=== PATIENT | male | born 1970 | race Caucasian/White ===

== ENCOUNTER 2020-05-20 10:47 | Emergency (ER) | payer OTHER ==
[~2020-05-20 10:47] MED LIST: ASPIRIN EC81 MG PO; AUGMENTIN 875-1 EACH PO; BASAGLAR K100 UNIT/1 SC; BENTYL10 MG PO; CITRATE OF MAG296 ML PO; COLACE100 MG PO; CYANOCOBAL1000 MCG/1 SC; FENOFIBRATE145 MG PO; JANUVIA50 MG PO; LASIX20 MG PO; LEVAQUIN500 MG PO; LEVSIN0.125 MG PO; METFORMIN HCL500 MG PO; MIRALAX 238GM238 GM PO; MOBIC7.5 MG PO; NITROGLYCERIN0.4 MG SL; NORCO 5-325 TA1 EACH PO; PANTOPRAZOLE SO40 MG PO; PREDNISONE 20MG20 MG PO; PRINIVIL20 MG PO; TOPROL XL 25MG25 MG PO; TRULICITY1.5 MG/0.5 SC; VICODIN 10/3251 EACH PO; VITAMIN C250 M1 PO; ZOFRAN4 MG PO; ZPAK PO
[2020-05-20] MEDS ORDERED: NAPROXEN500 MG PO (12:13)
[2020-09-09] MEDS ORDERED: COLACE100 MG PO (08:20)
[2020-09-09] MEDS ORDERED: ULTRAM50 MG PO (08:20)
== END 2020-05-20 12:37 | disposition home or self-care (01) ==
LOC: FER 10:47
DX: M77.12 Lateral epicondylitis, left elbow (principal); I10 Essential (primary) hypertension; E11.9 Type 2 diabetes mellitus without complications
CPT/HCPCS: 73090

== ENCOUNTER 2020-08-07 11:58 | Emergency (ER) | payer OTHER ==
[~2020-08-07 11:58] MED LIST changes: +NAPROXEN500 MG PO
[2020-08-07 13:03] LABS: BASOPHIL 0.5 % (0-2); EOSINOPHIL 2.2 % (0-5); HCT 46.1 % (42.0-52.0); HGB 15.7 g/dl (13.2-18.0); LYMPHOCYTE 43.5 % (15-48); MCH 29.8 pg (25.0-31.0); MCHC 34.1 g/dL (32.0-36.0); MCV 87.6 fL (78.0-100.0); MONOCYTE 4.2 % (0-12); MPV 10.9 fL (6.0-9.5); NRBC 0; PLT 249 K/uL (150-400); RBC 5.26 M/uL (4.70-6.00); RDW 13.2 % (11.5-14.0); WBC 9.5 K/uL (4.0-10.5)
[2020-08-07 13:07] LABS: ALBUMIN 3.7 g/dL (3.4-5.0); BILIRUBIN - TOTAL 0.3 mg/dL (0.2-1.0); BUN/CREAT RATIO (CALC) 27.3 RATIO; CREATININE 0.88 mg/dL (0.67-1.17); GLOBULIN (CALCULATION) 4.1 g/dL; POTASSIUM 4.4 mmol/L (3.5-5.1); TOTAL PROTEIN 7.8 g/dL (6.4-8.2)
[2020-08-07 13:38] LABS: BILIRUBIN NEGATIVE (NEGATIVE); BLOOD NEGATIVE Ery/uL (NEGATIVE); CLARITY CLEAR (CLEAR); COLOR YELLOW (YELLOW); GLUCOSE (U) NORMAL (NORMAL); LEUKOCYTES NEGATIVE Leu/uL (NEGATIVE); NITRITE NEGATIVE (NEGATIVE); PROTEIN NEGATIVE (NEGATIVE); UROBILINOGEN 0.2 mg/dL (0.2-1.0); pH 6.5 (5.0-9.0)
[2020-08-07] MEDS ORDERED: RECTIV30 GM PR (14:54)
[2020-09-09] MEDS ORDERED: COLACE100 MG PO (08:20)
[2020-09-09] MEDS ORDERED: ULTRAM50 MG PO (08:20)
== END 2020-08-07 15:03 | disposition home or self-care (01) ==
LOC: FER 11:58
PROVIDERS: Nurse Practitioner Family
DX: K59.00 Constipation, unspecified (principal); E11.9 Type 2 diabetes mellitus without complications; Z90.49 Acquired absence of other specified parts of digestive tract
CPT/HCPCS: 36415; 80053; 81003; 85025; J1885; J2270; J7030; Q9967

== ENCOUNTER 2020-08-26 01:03 | Emergency (ER) | payer OTHER ==
[~2020-08-26 01:03] MED LIST changes: +RECTIV30 GM PR
[2020-08-26 02:32] LABS: ALBUMIN 3.6 g/dL (3.4-5.0); BILIRUBIN - TOTAL 0.2 mg/dL (0.2-1.0); C-REACTIVE PROTEIN 1.4 mg/dL (<=0.90); GLOBULIN (CALCULATION) 4.1 g/dL; MAGNESIUM 1.9 mg/dL (1.8-2.4); POTASSIUM 4.4 mmol/L (3.5-5.1); TOTAL PROTEIN 7.7 g/dL (6.4-8.2)
[2020-08-26 02:38] LABS: BASOPHIL 0.5 % (0-2); EOSINOPHIL 2.5 % (0-5); HCT 45.1 % (42.0-52.0); HGB 15.1 g/dl (13.2-18.0); LYMPHOCYTE 38.9 % (15-48); MCH 29.9 pg (25.0-31.0); MCHC 33.5 g/dL (32.0-36.0); MCV 89.3 fL (78.0-100.0); MONOCYTE 6.5 % (0-12); MPV 10.9 fL (6.0-9.5); NEUTROPHIL 49.8 % (41-80); NRBC 0; PLT 235 K/uL (150-400); RBC 5.05 M/uL (4.70-6.00); RDW 13.5 % (11.5-14.0); WBC 9.7 K/uL (4.0-10.5)
[2020-08-26 02:40] LABS: LACTIC ACID 1.5 mmol/L (0.4-1.9)
[2020-08-26 05:38] LABS: BILIRUBIN NEGATIVE (NEGATIVE); BLOOD NEGATIVE Ery/uL (NEGATIVE); CLARITY CLEAR (CLEAR); COLOR YELLOW (YELLOW); GLUCOSE (U) NORMAL (NORMAL); LEUKOCYTES NEGATIVE Leu/uL (NEGATIVE); NITRITE NEGATIVE (NEGATIVE); PROTEIN NEGATIVE (NEGATIVE); SPECIFIC GRAVITY >=1.030 (1.001-1.030); UROBILINOGEN 0.2 mg/dL (0.2-1.0)
[2020-08-26] MEDS ORDERED: MOBIC7.5 MG PO (06:15)
[2020-08-26] MEDS ORDERED: ROBAXIN750 MG PO (06:15)
[2020-09-09] MEDS ORDERED: ULTRAM50 MG PO (08:20)
[2020-09-09] MEDS ORDERED: COLACE100 MG PO (08:20)
== END 2020-08-26 06:36 | disposition home or self-care (01) ==
LOC: FER 01:03
PROVIDERS: Emergency Medicine Emergency Medical Services
DX: M54.12 Radiculopathy, cervical region (principal); M54.16 Radiculopathy, lumbar region; U07.1 COVID-19; M25.552 Pain in left hip; E11.9 Type 2 diabetes mellitus without complications; Z79.84 Long term (current) use of oral hypoglycemic drugs; Z79.899 Other long term (current) drug therapy
CPT/HCPCS: 36415; 70450; 72125; 72128; 72131; 72192; 80053; 81003; 83605; 83735; 85025; 86140; J1100; J1170; J1885; U0002

== ENCOUNTER → 2020-09-09 | Day surgery (SDC) | payer OTHER ==
[~2020-09-09] VITALS: Ht 185.4 cm; Wt 141.5 kg
[~2020-09-09] MED LIST changes: +PERCOCET 5-3251 EACH PO; +ROBAXIN750 MG PO; +ULTRAM50 MG PO
== END | disposition home or self-care (01) ==
LOC: FAS 09-01 07:30
DX: K60.2 Anal fissure, unspecified (principal); K64.9 Unspecified hemorrhoids; F32.9 Major depressive disorder, single episode, unspecified; E11.9 Type 2 diabetes mellitus without complications; E78.5 Hyperlipidemia, unspecified; I10 Essential (primary) hypertension; G47.30 Sleep apnea, unspecified; Z87.891 Personal history of nicotine dependence; K59.00 Constipation, unspecified; R68.89 Other general symptoms and signs
CPT/HCPCS: J0585; J0585-JG; J2250; J2405; J2704; J3010; J7120

== ENCOUNTER 2020-09-14 05:35 | Inpatient (IN) | payer OTHER ==
[~2020-09-14] VITALS: Ht 185.4 cm; Wt 141.6 kg
[~2020-09-14 05:35] MED LIST changes: -PERCOCET 5-3251 EACH PO
[2020-09-14 07:22] LABS: BASOPHIL 0.5 % (0-2); EOSINOPHIL 1.2 % (0-5); HCT 43.5 % (42.0-52.0); HGB 14.5 g/dl (13.2-18.0); MCH 29.2 pg (25.0-31.0); MCHC 33.3 g/dL (32.0-36.0); MCV 87.7 fL (78.0-100.0); MONOCYTE 7.1 % (0-12); MPV 10.3 fL (6.0-9.5); NEUTROPHIL 60.9 % (41-80); NRBC 0; PLT 300 K/uL (150-400); RBC 4.96 M/uL (4.70-6.00); RDW 12.9 % (11.5-14.0); WBC 14.4 K/uL (4.0-10.5)
[2020-09-14 07:24] LABS: ALBUMIN 3.3 g/dL (3.4-5.0); BILIRUBIN - TOTAL 0.4 mg/dL (0.2-1.0); BUN/CREAT RATIO (CALC) 17.3 RATIO; CREATININE 1.5 mg/dL (0.67-1.17); GLOBULIN (CALCULATION) 4.5 g/dL; POTASSIUM 4.3 mmol/L (3.5-5.1); TOTAL PROTEIN 7.8 g/dL (6.4-8.2)
[2020-09-14 07:45] LABS: LACTIC ACID 1.5 mmol/L (0.4-1.9)
[2020-09-14 08:20] LABS: BILIRUBIN NEGATIVE (NEGATIVE); BLOOD NEGATIVE Ery/uL (NEGATIVE); CLARITY CLEAR (CLEAR); COLOR YELLOW (YELLOW); GLUCOSE (U) NORMAL (NORMAL); LEUKOCYTES NEGATIVE Leu/uL (NEGATIVE); NITRITE NEGATIVE (NEGATIVE); PROTEIN NEGATIVE (NEGATIVE); SPECIFIC GRAVITY 1.025 (1.001-1.030); UROBILINOGEN 0.2 mg/dL (0.2-1.0)
[2020-09-14] MEDS ORDERED: COLACE100 MG PO (15:50)
[2020-09-14] MEDS ORDERED: PERCOCET 5-3251 EACH PO ×2 (15:50→17:08)
[2020-09-14] MEDS ORDERED: AUGMENTIN 875-1 EACH PO (15:50)
== END 2020-09-14 17:11 | disposition home or self-care (01) | DRG 856 ==
LOC: FER 05:35 → FMS 08:40
PROVIDERS: Emergency Medicine; Surgery; ADMIT Internal Medicine
PROC: 0D9P0ZZ Drainage of Rectum, Open Approach (ICD-10-PCS; principal; 2020-09-14 12:00)
DX: T81.44XA Sepsis following a procedure, initial encounter (principal); A41.9 Sepsis, unspecified organism; K61.1 Rectal abscess; N17.9 Acute kidney failure, unspecified; E11.9 Type 2 diabetes mellitus without complications; Z20.822 Contact with and (suspected) exposure to COVID-19; T81.41XA Infection following a procedure, superficial incisional surgical site, initial encounter; I10 Essential (primary) hypertension; I25.10 Atherosclerotic heart disease of native coronary artery without angina pectoris; Z79.899 Other long term (current) drug therapy; Z79.82 Long term (current) use of aspirin; K59.00 Constipation, unspecified; K64.9 Unspecified hemorrhoids; Z87.891 Personal history of nicotine dependence
CPT/HCPCS: 36415; 80053; 81003; 83605; 83690; 85025; 87070; 87075; 87077; 87186; 87205; 94010; J1170; J2250; J2405; J2543; J2704; J2710; J3010; J3370; J7050; J7120; Q9967; U0002

== ENCOUNTER 2021-01-04 21:27 | Emergency (ER) | payer OTHER ==
[~2021-01-04 21:27] MED LIST changes: +PERCOCET 5-3251 EACH PO
[2021-01-04 22:29] LABS: BASOPHIL 0.4 % (0-2); EOSINOPHIL 2.1 % (0-5); HCT 42.2 % (42.0-52.0); HGB 13.9 g/dl (13.2-18.0); LYMPHOCYTE 39.4 % (15-48); MCHC 32.9 g/dL (32.0-36.0); MCV 87.9 fL (78.0-100.0); MONOCYTE 6.7 % (0-12); MPV 10.8 fL (6.0-9.5); NEUTROPHIL 50.6 % (41-80); NRBC 0; PLT 211 K/uL (150-400); RDW 13.8 % (11.5-14.0); WBC 10.2 K/uL (4.0-10.5)
[2021-01-04 22:32] LABS: BILIRUBIN NEGATIVE (NEGATIVE); BLOOD NEGATIVE Ery/uL (NEGATIVE); CLARITY CLEAR (CLEAR); COLOR YELLOW (YELLOW); GLUCOSE (U) NORMAL (NORMAL); LEUKOCYTES NEGATIVE Leu/uL (NEGATIVE); NITRITE NEGATIVE (NEGATIVE); PROTEIN NEGATIVE (NEGATIVE); SPECIFIC GRAVITY >=1.030 (1.001-1.030); UROBILINOGEN 0.2 mg/dL (0.2-1.0)
[2021-01-04 22:46] LABS: ALBUMIN 3.3 g/dL (3.4-5.0); BILIRUBIN - TOTAL 0.3 mg/dL (0.2-1.0); BUN/CREAT RATIO (CALC) 23.4 RATIO; CREATININE 1.24 mg/dL (0.67-1.17); GLOBULIN (CALCULATION) 3.5 g/dL; POTASSIUM 3.9 mmol/L (3.5-5.1); TOTAL PROTEIN 6.8 g/dL (6.4-8.2)
[2021-01-04] MEDS ORDERED: ONDANSETRON ODT4 MG PO ×2 (23:20→23:33)
[2021-01-04] MEDS ORDERED: LEVSIN-SL0.125 M1 SL (23:20)
[2021-01-04] MEDS ORDERED: HYDROCODON-ACE1 EAC2 PO (23:32)
== END 2021-01-05 00:14 | disposition home or self-care (01) ==
LOC: FER 21:27
PROVIDERS: Internal Medicine
DX: R10.32 Left lower quadrant pain (principal); R19.7 Diarrhea, unspecified; N17.9 Acute kidney failure, unspecified; E11.9 Type 2 diabetes mellitus without complications; I10 Essential (primary) hypertension; Z79.84 Long term (current) use of oral hypoglycemic drugs; Z79.899 Other long term (current) drug therapy
CPT/HCPCS: 36415; 80053; 81003; 83690; 85025; J1170; J2405